=== PATIENT | female | born 1995 | race Caucasian/White ===

== ENCOUNTER 2018-06-22 13:04 | Inpatient (IN) | payer MEDICAID, OTHER ==
[~2018-06-22] VITALS: Ht 165.1 cm; Wt 99.1 kg
[~2018-06-22 13:04] MED LIST: BIRTH CONTROL PO; DOCU-131 PO; IBUP-1222 PO; IBUP-1623 PO; OXYC-302 PO; PNV1TABL32 PO; RANI150T23 PO
[2018-06-27 10:00] VITALS: BP 144/69
[2018-06-27] MEDS: OXYTOCIN 30U/ 0.9% NaCL 500ML 500 ML IV SCH ×2 (10:02→20:02)
[2018-06-27] MEDS ORDERED: NEWBORN KIT ONE (10:11)
[2018-06-27 10:22] LABS: BASOPHILS # (AUTO) 0.03 x10^3/uL (0-0.1); BASOPHILS % (AUTO) 0 % (0-1); EOSINOPHILS % (AUTO) 1 % (1-7); LYMPHOCYTES # (AUTO) 2.72 x10^3/uL (1-3.4); LYMPHOCYTES % (AUTO) 26 % (22-44); MD NO; MEAN CORPUSCULAR HEMOGLOBIN 23.3 pg (27.0-34.8); MEAN CORPUSCULAR HGB CONC 32.3 g/dL (32.4-35.8); MEAN CORPUSCULAR VOLUME 72.2 fL (80-100); MEAN PLATELET VOLUME 7.3 fL (7.4-10.4); MONOCYTES # (AUTO) 0.62 x10^3/uL (0.2-0.8); MONOCYTES % (AUTO) 6 % (2-9); NEUTROPHILS % (AUTO) 67 % (42-75); PLATELET COUNT 366 x10^3/uL (130-400); RED BLOOD COUNT 4.71 x10^6/uL (3.82-5.3); RED CELL DISTRIBUTION WIDTH 18.6 % (9.6-15.2)
[2018-06-27] MEDS: LACTATED RINGERS 1,000 ML IV SCH ×8 (10:25→21:58)
[2018-06-27] MEDS ORDERED: ONDANSETRON 2MG/ML, 2ML IVPush ONE (10:30)
[2018-06-27] MEDS ORDERED: SODIUM CITRATE/CITRIC ACID 30 ML UDC ONE (10:30)
[2018-06-27] MEDS ORDERED: LACTATED RINGERS 1,000 ML IVBOLUS ONE (10:30)
[2018-06-27] MEDS ORDERED: OXYTOCIN 30U/ 0.9% NaCL 500ML 500 ML ONE (10:30)
[2018-06-27] MEDS ORDERED: METOCLOPRAMIDE 5 MG/ML, 2ML IV ONE (10:30)
[2018-06-27] MEDS ORDERED: METOCLOPRAMIDE 5 MG/ML, 2ML ONE (10:30)
[2018-06-27] MEDS: PLEASE ENTER HEIGHT AND WEIGHT MC SCH ×2 (11:00→19:00)
[2018-06-27] MEDS ORDERED: morphine SULFATE/PF 0.5 MG/ML, 10ML ONE (11:53)
[2018-06-27] MEDS ORDERED: PHENYLEPHRINE 10 MG/ML ONE (11:56)
[2018-06-27] MEDS ORDERED: EPHEDRINE 50 MG/ML, 1ML ONE (11:56)
[2018-06-27] MEDS ORDERED: CEFAZOLIN 1,000 MG ONE (11:56)
[2018-06-27] MEDS ORDERED: OXYTOCIN 10 UNITS/ML, 1ML ONE (11:56)
[2018-06-27] MEDS ORDERED: ONDANSETRON 2MG/ML, 2ML ONE (11:56)
[2018-06-27] MEDS ORDERED: WATER-INJECTION,STERILE 10 ML IV ONE (11:56)
[2018-06-27] MEDS ORDERED: OXYTOCIN 30U/ 0.9% NaCL 500ML 500 ML IV SCH (11:58)
[2018-06-27] MEDS ORDERED: ONDANSETRON 2MG/ML, 2ML IV PRN (12:00)
[2018-06-27] MEDS ORDERED: ACETAMINOPHEN 325 MG TABLET PO PRN (12:00)
[2018-06-27] MEDS ORDERED: MISOPROSTOL 200 MCG TABLET PR PRN (12:00)
[2018-06-27] MEDS ORDERED: MEASLES,MUMPS&RUBELLA VACC/PF 0.5 ML SQ-VACC PRN (12:00)
[2018-06-27] MEDS ORDERED: DIPH,PERTUSS(ACELL),TET VAC/PF NC IM-VACC PRN (12:00)
[2018-06-27] MEDS ORDERED: OXYcodone/APAP 5/325MG TABLET PO PRN (12:00)
[2018-06-27] MEDS ORDERED: SIMETHICONE 80 MG CHEW TAB PO PRN (12:00)
[2018-06-27] MEDS ORDERED: morphine SULFATE 10 MG/ML, 1ML IVPush PRN ×2 (12:00)
[2018-06-27] MEDS ORDERED: CALCIUM CARBONATE 500 MG TAB.CHEW PO PRN (12:00)
[2018-06-27] MEDS ORDERED: EPINEPHRINE 1 MG/ML, 1ML ONE (12:53)
[2018-06-27] MEDS ORDERED: KETOROLAC 30 MG/1 ML ONE (13:46)
[2018-06-27] MEDS ORDERED: FENTANYL PF 100 MCG/2ML ONE (13:46)
[2018-06-27] MEDS: KETOROLAC 30 MG/1 ML IV SCH ×2 (13:55→18:33)
[2018-06-27] MEDS ORDERED: FENTANYL PF 100 MCG/2ML IVPush PRN (14:00)
[2018-06-27 16:10] VITALS: BP 126/64
[2018-06-27 20:00] VITALS: BP 124/70
[2018-06-27 23:56] VITALS: BP 118/73
[2018-06-28] MEDS: KETOROLAC 30 MG/1 ML IV SCH ×4 (00:40→19:18)
[2018-06-28] MEDS: DOCUSATE 100 MG CAPSULE PO PRN ×2 (00:48→08:58)
[2018-06-28 04:00] VITALS: BP 121/62
[2018-06-28] MEDS: OXYcodone/APAP 5/325MG TABLET PO PRN ×4 (06:00→19:17)
[2018-06-28] MEDS: OXYTOCIN 30U/ 0.9% NaCL 500ML 500 ML IV SCH ×2 (06:02→16:02)
[2018-06-28] MEDS: LACTATED RINGERS 1,000 ML IV SCH ×2 (07:58→17:58)
[2018-06-28 08:15] VITALS: BP 117/78
[2018-06-28 08:52] LABS: BASOPHILS # (AUTO) 0.03 x10^3/uL (0-0.1); BASOPHILS % (AUTO) 0 % (0-1); EOSINOPHILS # (AUTO) 0.03 x10^3/uL (0-0.4); EOSINOPHILS % (AUTO) 0 % (1-7); LYMPHOCYTES # (AUTO) 2.24 x10^3/uL (1-3.4); LYMPHOCYTES % (AUTO) 20 % (22-44); MD NO; MEAN CORPUSCULAR HEMOGLOBIN 23.1 pg (27.0-34.8); MEAN CORPUSCULAR VOLUME 72.2 fL (80-100); MEAN PLATELET VOLUME 7.4 fL (7.4-10.4); MONOCYTES # (AUTO) 0.72 x10^3/uL (0.2-0.8); MONOCYTES % (AUTO) 6 % (2-9); NEUTROPHILS # (AUTO) 8.41 x10^3/uL (1.8-6.8); NEUTROPHILS % (AUTO) 74 % (42-75); PLATELET COUNT 348 x10^3/uL (130-400); RED BLOOD COUNT 4.22 x10^6/uL (3.82-5.3); RED CELL DISTRIBUTION WIDTH 19.2 % (9.6-15.2)
[2018-06-28] MEDS: PRENATAL VIT/IRON/FA 1 EACH TABLET PO SCH (08:57)
[2018-06-28 12:45] VITALS: BP 126/83
[2018-06-28 20:00] VITALS: BP 121/76
[2018-06-29] MEDS: OXYcodone/APAP 5/325MG TABLET PO PRN ×3 (00:12→09:43)
[2018-06-29] MEDS: OXYTOCIN 30U/ 0.9% NaCL 500ML 500 ML IV SCH (02:02)
[2018-06-29] MEDS: KETOROLAC 30 MG/1 ML IV SCH ×2 (02:08→08:30)
[2018-06-29] MEDS: LACTATED RINGERS 1,000 ML IV SCH (03:58)
[2018-06-29 07:30] VITALS: BP 123/82
[2018-06-29] MEDS: PRENATAL VIT/IRON/FA 1 EACH TABLET PO SCH (08:31)
[2018-06-29] MEDS ORDERED: IBUP-1222 PO (11:22)
[2018-06-29] MEDS ORDERED: OXYC-302 PO (11:23)
[2018-06-29] MEDS ORDERED: FERR325T18 PO (11:23)
[2018-06-29] MEDS ORDERED: IBUPROFEN 600 MG TABLET PO PRN (12:00)
== END 2018-06-29 13:25 | disposition home or self-care (01) | DRG 787 ==
LOC: LDIP 06-27 09:59 → 2NW 06-27 15:19
PROVIDERS: ADMIT Obstetrics & Gynecology; ATTEND Obstetrics & Gynecology
PROC: 10D00Z1 Extraction of Products of Conception, Low, Open Approach (ICD-10-PCS; principal; 2018-06-27)
DX: O34.211 Maternal care for low transverse scar from previous cesarean delivery (principal); D62 Acute posthemorrhagic anemia; G89.18 Other acute postprocedural pain; O90.81 Anemia of the puerperium; O90.89 Other complications of the puerperium, not elsewhere classified; O69.81X0 Labor and delivery complicated by cord around neck, without compression, not applicable or unspecified; Z37.0 Single live birth; Z3A.39 39 weeks gestation of pregnancy; Z91.010 Allergy to peanuts; Z91.018 Allergy to other foods
CPT/HCPCS: 36415; 82803; 85025; 86850; 86900; G0378; J0171; J0690; J1885; J2274; J2405; J3010; J2370; J2590; J2765; J7120

== ENCOUNTER 2018-07-30 11:19 | Emergency (ER) | payer MEDICAID ==
[~2018-07-30] VITALS: Ht 165.1 cm; Wt 92.1 kg
[~2018-07-30 11:19] MED LIST changes: +FERR325T18 PO
[2018-07-30] MEDS ORDERED: METOCLOPRAMIDE 5 MG/ML, 2ML ONE (12:27)
[2018-07-30] MEDS ORDERED: METOCLOPRAMIDE 5 MG/ML, 2ML IVPush ONE (12:30)
[2018-07-30] MEDS ORDERED: SODIUM CHLORIDE FLUSH 10ML SYR IVF ONE (12:30)
[2018-07-30 13:02] LABS: ALANINE AMINOTRANSFERASE 43 U/L (12-78); ALBUMIN 3.9 g/dL (3.4-5.0); ANION GAP 5 mmol/L (5-15); CALCIUM 9.5 mg/dL (8.5-10.1); CHLORIDE 105 mmol/L (98-107); CREATININE 0.78 mg/dL (0.55-1.02)
[2018-07-30 13:06] LABS: ALKALINE PHOSPHATASE 170 U/L (45-117); BILIRUBIN,TOTAL 0.4 mg/dL (0.2-1.0); TOTAL PROTEIN 8.3 g/dL (6.4-8.2)
[2018-07-30 13:08] LABS: MEAN CORPUSCULAR HEMOGLOBIN 23.4 pg (27.0-34.8); MEAN CORPUSCULAR HGB CONC 32.3 g/dL (32.4-35.8); MEAN CORPUSCULAR VOLUME 72.7 fL (80-100); MEAN PLATELET VOLUME 8.2 fL (7.4-10.4); PLATELET COUNT 344 x10^3/uL (130-400); RED BLOOD COUNT 5.82 x10^6/uL (3.82-5.3); RED CELL DISTRIBUTION WIDTH 22.1 % (9.6-15.2)
[2018-07-30 13:09] LABS: MICROSCOPIC NOT IND
[2018-07-30 13:16] LABS: CULTURE INDICATED? NO
[2018-07-30 13:27] LABS: BASOPHILS # (AUTO) 0.04 x10^3/uL (0-0.1); BASOPHILS % (AUTO) 0 % (0-1); EOSINOPHILS # (AUTO) 0.11 x10^3/uL (0-0.4); EOSINOPHILS % (AUTO) 1 % (1-7); LYMPHOCYTES # (AUTO) 2.41 x10^3/uL (1-3.4); LYMPHOCYTES % (AUTO) 23 % (22-44); MD SCAN; MONOCYTES # (AUTO) 0.48 x10^3/uL (0.2-0.8); MONOCYTES % (AUTO) 5 % (2-9); NEUTROPHILS # (AUTO) 7.56 x10^3/uL (1.8-6.8); NEUTROPHILS % (AUTO) 71 % (42-75)
[2018-07-30 13:52] VITALS: BP 120/57
--- NOTE | 2018-07-30 13:53 | NUR ---
TASK RN: PT VERBALIZES "THAT MEDICINE DID NOT HELP WITH THE PAIN" VSS, STOOL RESULTS PENDING. CALL LIGHT W/I REACH. NOTIFIED OF CONTINUED PAIN
[2018-07-30 13:58] LABS: CLOSTRIDIUM DIFFICILE ANTIGEN NEGATIVE; CLOSTRIDIUM DIFFICILE TOXIN NEGATIVE (Negative)
[2018-07-30] MEDS ORDERED: ONDANSETRON ODT 4 MG ONE (14:13)
[2018-07-30] MEDS ORDERED: ONDANSETRON ODT 4 MG PO ONE (14:30)
== END 2018-07-30 15:07 | disposition home or self-care (01) ==
LOC: ED 13:30
DX: R19.7 Diarrhea, unspecified (principal); K21.9 Gastro-esophageal reflux disease without esophagitis; J45.909 Unspecified asthma, uncomplicated
CPT/HCPCS: 36415; 80053; 81003; 84703; 85025; 87324; 89055; 96374; 99283; J2765; Q0162